=== PATIENT | female | born 1970 | race Two or more races ===

== ENCOUNTER 2016-10-27 05:15 | Emergency (ER) | payer SELFPAY ==
--- NOTE | 2016-10-27 05:19 | EDPHY ---
H & P HPI/ROS: HPI CHIEF COMPLAINT: Shortness of breath, asthma HISTORY OF PRESENT ILLNESS: this patient is a 45-year-old female, history of asthma, uses albuterol p.r.n.. Also has a nebulizer machine at home. She is followed by [facility]. She woke up around 4:00 a.m. feeling tight with shortness of breath and wheezing. She decided come to the emergency room after her albuterol and nebulizer was not helping her. She denies chest pain fever or productive cough. Denies hemoptysis. No chest pain. She had audible wheezing at triage was brought back to ER room 6 where I greeted her. Never been intubated. Upon arrival here in emergency room she has decreased breath sounds bilaterally and wheezing. No respiratory distress. Past Medical History: Asthma, seasonal allergies , hypertension Past Surgical History: no recent surgeries Social History: denies daily use of drugs alcohol tobacco products Family History: noncontributory ROS REVIEW OF SYSTEMS: A comprehensive 10 point review of systems is otherwise negative aside from elements mentioned in the history of present illness. Exam Constitutional appears well nontoxic triage nursing summary reviewed, vital signs reviewed, awake/alert. 89% RA Sat Eyes normal conjunctivae and sclera, EOMI, PERRLA. HENT normal inspection, atraumatic, moist mucus membranes, no epistaxis, neck supple/ no meningismus, no raccoon eyes. Respiratory decreased breath sounds bilaterally, audible wheezing present. Wheezing throughout lung lundberg. No respiratory distress. Cardiovascular rate normal, regular rhythm, no murmur, no edema, distal pulses normal. Gastrointestinal soft, non-tender, no rebound, no guarding, normal bowel sounds, no distension, no pulsatile mass. Genitourinary no CVA tenderness. Musculoskeletal no midline vertebral tenderness, full range of motion, no calf swelling, no tenderness of extremities, no meningismus, good pulses, neurovascularly intact. Skin pink, warm, & dry, no rash, skin atraumatic. Neurologic awake, alert and oriented x 3, AAOx3, moves all 4 extremities equally, motor intact, sensory intact, CN II-XII intact, normal cerebellar, normal vision, normal speech. Psychiatric normal mood/affect. Heme/Lymph/Immune no lymphadenopathy. Differential Diagnosis: Includes but is not limited to in a particular order acute asthma attack, reactive airway disease, pneumothorax, pneumonia Medical Decision Making: plan for this patient x-ray chest one view, DuoNeb breathing treatment, prednisone 60 mg p.o.. Re-evaluation: 0543AM: Patient had DuoNeb breathing treatment. Feels slightly better. Still wheezing. No tachypnea. Patient is requesting a 2nd neb will order her an albuterol neb. ED x-ray chest one view: negative for acute cardiopulmonary disease. specifically no pneumothorax or pneumonia. 0617AM: Re-evaluation at this time after albuterol nebulizer she feels much better. She is moving good air. She is requesting be discharged home. She feels much. Otilia RN at bedside. resting comfortably good air movement. Requesting discharge. Will give her an albuterol inhaler for home ice her albuterol inhaler here is almost out. I do recommend close follow up [facility]. She does understand she gets worsening shortness of breath, wheezing, cough or cannot move air to return Here to the emergency room. Source: Patient - Medical/Surgical History Hx Asthma: Yes Hx Chronic Respiratory Disease: No Hx Diabetes: No Hx Cardiac Disease: No Hx Renal Disease: No Hx Cirrhosis: No Hx Alcoholism: No Hx HIV/AIDS: No Hx Splenectomy or Spleen Trauma: No Other PMH: HTN, ASTHMA, fibroids; - Social History Smoking Status: Never smoked Constitutional: Initial Vital Signs Temperature (C) 36.6 C 10/27/16 05:19 Heart Rate 91 10/27/16 05:19 Respiratory Rate 18 10/27/16 05:19 Blood Pressure 138/80 H 10/27/16 05:19 O2 Sat (%) 89 L 10/27/16 05:19 O2 Delivery Mode Room Air Allergies/Adverse Reactions: No Known Allergies Allergy (Verified 01/29/16 10:18) Home Medications: Medication Instructions Recorded Hydrochlorothiazide 04/24/13 [Hydrochlorothiazide 25 MG (RX)] Lisinopril 20 mg PO 04/24/13 Proventil Inhaler (RX) 04/24/13 Albuterol [Proventil Inhaler HFA 1 - 2 puffs IH Q4H #1 mdi 04/01/15 (*)] Albuterol [Proventil Inhaler HFA 1 - 2 puffs IH Q4H #1 mdi 10/27/16 (*)] predniSONE 60 mg PO DAILY #15 tab 10/27/16 Medical Decision Making - Data Points Medications Given: Discontinued Medications Albuterol (Proventil Neb) 3 ml IH EDNOW ONE Stop: 10/27/16 05:44 Last Admin: 10/27/16 05:40 Dose: 3 ml Albuterol/Ipratropium (Duoneb) 3 ml IH EDNOW ONE Stop: 10/27/16 05:23 Last Admin: 10/27/16 05:28 Dose: 3 ml Prednisone (Prednisone) 60 mg PO EDNOW ONE Stop: 10/27/16 05:25 Last Admin: 10/27/16 05:28 Dose: 60 mg Departure - Departure Disposition: Home, Routine, Self-Care Clinical Impression: Asthma attack Condition: Good Instructions: Asthma (ED) Additional Instructions: 1. Drink lots of fluids stay well-hydrated. 2. Use your albuterol inhaler 2 puffs every 4 hours as needed. However if using it more often or have worsening shortness of breath come back to the emergency room. Referrals: Patient,NotPresent [Unknown] - As per Instructions Prescriptions: Albuterol [Proventil Inhaler HFA (*)] 1 - 2 puffs IH Q4H #1 mdi predniSONE 60 mg PO DAILY #15 tab
[2016-10-27] MEDS ORDERED: IPRATROPIUM/ALBUTEROL 3 ML DEYVIAL IH ONE (05:22)
[2016-10-27] MEDS ORDERED: predniSONE 20 MG TAB PO ONE (05:24)
[2016-10-27] MEDS ORDERED: ALBUTEROL 3 ML DEYVIAL IH ONE (05:43)
[2016-10-27 06:10] VITALS: BP 133/70; PULSE 84; RESP 20; TEMP 98.2; O2SAT 93
[2016-10-27] MEDS ORDERED: ALBUTEROL INH PREPACK MDI TAKEHOME ONE ×2 (06:17→06:19)
== END 2016-10-27 06:31 | disposition home or self-care (01) ==
DX: J45.909 Unspecified asthma, uncomplicated (principal); I10 Essential (primary) hypertension